=== PATIENT | female | born 1955 | race Caucasian/White ===

== ENCOUNTER 2021-08-02 04:38 | Emergency (ER) | payer OTHER ==
[~2021-08-02] VITALS: Ht 154.9 cm; Wt 52.2 kg
[~2021-08-02 04:38] MED LIST: ATIVAN1 MG PO; LEXAPRO20 MG PO; NEXIUM40 MG PO; SYNTHROID50 MCG PO
[2021-08-02 04:45] VITALS: BP 173/97
[2021-08-02] MEDS ORDERED: PRISTIQ100 MG PO (04:51)
[2021-08-02] MEDS ORDERED: MOBIC7.5 MG PO (05:11)
[2021-08-02] MEDS ORDERED: ASPERCREME1 EACH TOP (05:11)
== END 2021-08-02 05:13 | disposition home or self-care (01) ==
LOC: ER 04:38
DX: G89.29 Other chronic pain (principal); M54.5 Low back pain; F32.9 Major depressive disorder, single episode, unspecified; K21.9 Gastro-esophageal reflux disease without esophagitis; E03.9 Hypothyroidism, unspecified; Z79.899 Other long term (current) drug therapy; Z88.2 Allergy status to sulfonamides; Z88.5 Allergy status to narcotic agent; Z88.6 Allergy status to analgesic agent